=== PATIENT | male | born 1965 | race Caucasian/White ===

== ENCOUNTER 2022-07-21 07:16 | Emergency (ER) | payer OTHER ==
[~2022-07-21] VITALS: Ht 165.1 cm; Wt 84.4 kg
--- NOTE | 2022-07-21 07:20 | NUR ---
Patient to ER bed 8 to gown for evaluation. Side rails up. Report given to VIR[place] MURRAY.
[2022-07-21 07:30] VITALS: BP_SYST 154
--- NOTE | 2022-07-21 07:38 | NUR ---
ER at bedside examining patient.
--- NOTE | 2022-07-21 07:40 | NUR ---
PT presents to the ER bib work mates from job site. Pt CC head injury. Pt states fell off a ladder and did not lose consciousness. Pt posterior occipital bruised bulging with laceration and controlled bleeding. Pt is aaox4, denies headache NV. resp. even and unlabored. Pulses WNL.
[2022-07-21] MEDS ORDERED: traMADol HCL HCL 50 MG TABLET (ULTRAM) PO ONE (07:45)
--- NOTE | 2022-07-21 08:05 | NUR ---
Pt returns from Radiology dept. given pain medication per doctor order. bed down rail up.
[2022-07-21] MEDS ORDERED: TRAM50TA PO (08:55)
[2022-07-21] MEDS ORDERED: BACITRACIN 1 GM OINT TP ONE (09:12)
--- NOTE | 2022-07-21 09:30 | NUR ---
Patient given written and verbal discharge instructions and verbalizes understanding. ER MD discussed with patient the results and treatment provided. Patient in stable condition. ID arm band removed. Rx of bacitracin given. Patient educated on pain management and to follow up with PMD. Opportunity for questions provided and answered. Medication side effect fact sheet provided.
[2022-07-21 09:59] VITALS: BP_SYST 154
== END 2022-07-21 09:59 | disposition home or self-care (01) ==
LOC: SED 07:16
DX: S01.01XA Laceration without foreign body of scalp, initial encounter (principal); M62.011 Separation of muscle (nontraumatic), right shoulder; Z79.899 Other long term (current) drug therapy; W11.XXXA Fall on and from ladder, initial encounter; Y93.89 Activity, other specified; Y92.89 Other specified places as the place of occurrence of the external cause; Y99.8 Other external cause status
CPT/HCPCS: 70450-TC; 73030; 76376; 99284